=== PATIENT | female | born 1995 | race Caucasian/White ===

== ENCOUNTER 2019-11-14 15:47 | Outpatient (CLI) | payer OTHER ==
--- NOTE | 2019-11-14 16:11 | ULT ---
LEFT BREAST ULTRASOUND: 11/14/19 HISTORY: 24-year-old female with left breast lump, history of trauma. FINDINGS/IMPRESSION: Sonographic evaluation of the region of palpable concern at the 11 o'clock position of the left breas t 3 cm from the nipple demonstrates a well circumscribed slightly hyperechoic nonshadowing mass measu ring 3.2 x 2.8 x 1.2 cm with a small amount of fluid adjacent to it. This is most likely a hematoma. Recommend a follow-up ultrasound in three months.
== END 2019-11-14 15:48 | disposition home or self-care (01) ==
LOC: BICULT 15:47
PROVIDERS: ATTEND Advanced Practice Midwife
DX: N63.20 Unspecified lump in the left breast, unspecified quadrant (principal)

== ENCOUNTER 2019-12-18 05:30 | Inpatient (IN) | payer OTHER, MEDICAID ==
[2019-12-18 06:38] VITALS: BMI 48.0
[2019-12-18] MEDS: Lactated Ringer's 1,000 ML IV SCH ×3 (06:40→17:45)
[2019-12-18] MEDS ORDERED: Lidocaine 1% (PF) 30 ML VIAL SC PRN (07:35)
[2019-12-18] MEDS ORDERED: HYDROcodone/Acetaminophen 5/325 mg Tablet PO PRN ×2 (07:35)
[2019-12-18] MEDS ORDERED: Promethazine HCl 25 MG/ML VIAL IM PRN ×2 (07:35→16:46)
[2019-12-18] MEDS ORDERED: Ondansetron PF 4 MG/2 ML Vial IVP PRN ×2 (07:35→16:46)
[2019-12-18] MEDS ORDERED: Butorphanol Tartrate 1 MG/ML VIAL SLOW IVP PRN (07:35)
[2019-12-18] MEDS ORDERED: NS / Oxytocin 40 units/1000ml 1,000 ML IV PRN (07:35)
[2019-12-18] MEDS ORDERED: hydrALAZINE 20 MG/ML VIAL SLOW IVP PRN (07:35)
[2019-12-18] MEDS ORDERED: Ibuprofen 800 MG TAB PO PRN (07:35)
[2019-12-18] MEDS ORDERED: NS w/ Oxytocin 10 units 500 ML IV SCH (07:45)
[2019-12-18] MEDS ORDERED: Penicillin G Potassium 5 MILL.UNITS in Sodium Chloride 0.9% 100 ML IVPB SCH (07:45)
[2019-12-18 07:56] LABS: Hemoglobin 12.5 g/dL (12.0-16.0); Mean Corpuscular HGB CONC 31.7 g/dL (32.0-36.0); Mean Corpuscular Hemoglobin 24.8 pg (27.0-31.0); Mean Corpuscular Volume 78.3 fL (78.0-98.0); Mean Platelet Volume 9.6 fL (7.4-10.4); Platelet Count 179 thou/uL (130-400); RBC Distribution Width 13.5 % (11.5-14.5); Red Blood Cell (RBC) Count 5.05 mill/uL (4.20-5.40); White Blood Cell (WBC) Count 10.6 thou/uL (4.8-10.8)
[2019-12-18 08:36] LABS: HBSAg Index 0.23 S/CO (0-0.99); Hep B Surf Ag Non-Reactive S/CO (NonReactive); Syphilis Antibody Nonreactive (Nonreactive); Syphilis Antibody Index 0.04 S/CO (<1.00 Non-Reactive)
[2019-12-18] MEDS: Penicillin G 2.5 MILL.units 2.5 MILL.UNITS in Premix Bag 1 BAG IVPB SCH ×2 (12:14→16:14)
--- NOTE | 2019-12-18 15:51 | PDOC.LDHP ---
Labor and Delivery H&P Chief complaint: scheduled induction (Scheduled elective IOL) HPI: Patient arrives for elective IOL at term. +FM. Having stupid little contractions that are not doing anything. She is ready to get "this s*it on the road." Current gestational age (weeks): 39 Due date: 12/24/19 Dating criteria: last menstrual period Grav: 6 Para: 1 OB History Details: 2016 Past Medical History: Type 2 bi-polar anxiety disorder Current medications: none Previous surgical history: other (extractions of wisdom tooth) Allergies/Adverse Reactions: Allergies Allergy/AdvReac Type Severity Reaction Status Date / Time No Known Drug Allergies Allergy Verified 12/18/19 06:28 Social history: none - Physical Exam Vital signs reviewed and normal: yes Abnormal vital signs: 146/93 during a contractions General: breathing through contractions Lungs: nonlabored breathing Abdomen: gravid FHT: category 1 - Vaginal Exam cm dilated: 2 Effacement: 90% Station: -3 - OB Labs Blood type: O RH: negative Antibody Screen: negative HIV: negative RPR: negative HEPSAg: negative GBS: positive - Assessment L&D Assessment: elective induction at term - Plan Plan: admit to L&D, GBS antibiotic prophylaxis, informed consent obtained, anesthesia consult for pain management -: AROM IUPC and FSE placed at 1300
[2019-12-18] MEDS ORDERED: Fentanyl 4 mcg/Bup 0.1% Cadd 100 ML ONE (15:54)
[2019-12-18] MEDS ORDERED: diphenhydrAMINE 50 MG/ML VIAL IVP PRN (16:46)
[2019-12-18] MEDS ORDERED: Acetaminophen 325 MG TAB PO PRN (16:46)
[2019-12-18] MEDS ORDERED: EPHEDRINE 25 MG/5 ML SYRINGE SLOW IVP PRN (16:46)
[2019-12-18] MEDS ORDERED: Naloxone HCl 0.4 mg/ml Vial IVP PRN ×2 (16:46)
[2019-12-18] MEDS ORDERED: Lactated Ringer's 500 ML IV PRN (16:46)
[2019-12-18] MEDS ORDERED: Fentanyl 4 mcg/Bupivacaine 0.1% Cassette 100 ML EPIDURAL SCH (17:00)
[2019-12-18] MEDS ORDERED: Communication Order-Pharmacy FS SCH (17:00)
[2019-12-19] MEDS ORDERED: Fentanyl 4 mcg/Bup 0.1% Cadd 100 ML ONE (00:14)
[2019-12-19] MEDS: Penicillin G 2.5 MILL.units 2.5 MILL.UNITS in Premix Bag 1 BAG IVPB SCH ×3 (04:33→12:23)
[2019-12-19] MEDS ORDERED: Gentamicin Sulfate 400 MG in Sodium Chloride 0.9% 100 ML IVPB SCH (05:15)
[2019-12-19] MEDS: Lactated Ringer's 1,000 ML IV SCH ×4 (06:39→18:27)
--- NOTE | 2019-12-19 07:13 | PDOC.LDPN ---
Labor & Delivery Progress Note - Subjective Subjective: comfortable (with an epidural and sleeping) - Objective General: NAD Uterine fundus: non tender Dilation: 100 Effacement: 100% Station: 0 FHT: category 2 ( tachycardia, occasional deep decels) AROM: clear fluid - Assessment (1) Failure of descent in labor, delivered, current hospitalization Code(s): O62.2 - OTHER UTERINE INERTIA Current Visit: Yes Status: Acute (2) Obesity Code(s): E66.9 - OBESITY, UNSPECIFIED Current Visit: Yes Status: Acute Plan: other (proceed with primary c section for failure of decent. Dr. August notified and anethesia notified. )
[2019-12-19] MEDS ORDERED: Bicitra 30 ML UDCUP PO SCH (07:15)
[2019-12-19] MEDS ORDERED: CEFAZOLIN 2 GM in Premix Bag 1 BAG IVPB SCH (07:15)
[2019-12-19] MEDS ORDERED: Lidocaine 2% 10 ML INJ ONE (07:17)
[2019-12-19] MEDS ORDERED: MORPHINE 5 MG/10 ML PF VIAL ONE (07:21)
[2019-12-19] MEDS ORDERED: Oxytocin 10 UNITS/ML VIAL ONE ×2 (07:22→07:59)
[2019-12-19] MEDS ORDERED: Ondansetron PF 4 MG/2 ML Vial ONE (07:22)
[2019-12-19] MEDS ORDERED: Ketorolac Tromethamine 30 MG/ML VIAL ONE ×2 (07:22→10:06)
[2019-12-19] MEDS ORDERED: Dexamethasone 4 mg/ml Vial ONE (07:22)
[2019-12-19] MEDS ORDERED: Azithromycin 500 MG VIAL ONE (07:22)
[2019-12-19] MEDS ORDERED: PHENYLEPHRINE-NS 100 MCG/ML 10 ML SYRINGE ONE (07:34)
[2019-12-19] MEDS ORDERED: Fentanyl 100 MCG/2 ML VIAL ONE ×2 (07:51→08:33)
[2019-12-19 08:11] LABS: Actual Bicarbonate (HCO3a) 19.8 mEq/L (22-28); Base Excess (BEa) -14.1 mEq/L (-2.0 to +3.0)
[2019-12-19 08:14] LABS: Actual Bicarbonate (HCO3v) 18 mEq/L (22-28); Base Excess -13.5 mEq/L (-2.0 to +3.0)
[2019-12-19 08:15] LABS: pH (Cord, venous) 7.05 (7.32-7.43)
[2019-12-19] MEDS ORDERED: Sodium Chloride 0.9% 10 ML ONE (08:35)
[2019-12-19] MEDS ORDERED: Ondansetron PF 4 MG/2 ML Vial IVP PRN (09:04)
[2019-12-19] MEDS ORDERED: HYDROmorphone 2 MG/ML VIAL SLOW IVP PRN (09:04)
[2019-12-19] MEDS ORDERED: Promethazine HCl 25 MG/ML VIAL IM PRN (09:04)
[2019-12-19] MEDS ORDERED: Meperidine HCl/PF 25 MG/ML VIAL SLOW IVP PRN (09:04)
[2019-12-19] MEDS ORDERED: Promethazine HCl 25 MG SUPP PR PRN (09:04)
[2019-12-19] MEDS ORDERED: Ondansetron HCl/PF 4 MG/2 ML Vial IVP PRN (09:04)
[2019-12-19] MEDS ORDERED: diphenhydrAMINE 50 MG/ML VIAL IVP PRN (09:04)
[2019-12-19] MEDS ORDERED: Ketorolac Tromethamine 30 MG/ML VIAL IVP PRN (09:04)
[2019-12-19] MEDS ORDERED: Naloxone HCl 0.4 mg/ml Vial IVP PRN ×2 (09:04)
[2019-12-19] MEDS ORDERED: Naloxone HCl 0.4 mg/ml Vial IV PRN (09:04)
[2019-12-19] MEDS ORDERED: L&D-Morphine 4 MG/ML VIAL SLOW IVP PRN (09:04)
[2019-12-19] MEDS ORDERED: Communication Order-Pharmacy FS SCH (09:15)
--- NOTE | 2019-12-19 10:06 | PDOC.OPDEL ---
OB Operative/Delivery Note Delivery Dr/Surgeon: Mariangel Assist: Light Pre-Delivery Diagnosis: non-reassuring tracing, other (arrest of descent) Procedure/Post Delivery Dx: primary low transverse CS Weeks gestation: 39 Anesthesia: epidural - Findings A Sex: male - Additional Findings/Plan Placenta delivered: spontaneous findings: low transverse hysterotomy without extension, normal uterus, normal tubes, normal ovaries Estimated blood loss: 800cc Compilations/Other Findings: Gas 6.975, BE -14 Post delivery plan: routine recovery
[2019-12-19] MEDS ORDERED: NS / Oxytocin 40 units/1000ml 1,000 ML IV SCH (10:49)
[2019-12-19] MEDS ORDERED: Acetaminophen 325 MG TAB PO PRN (10:49)
[2019-12-19] MEDS ORDERED: hydrALAZINE 20 MG/ML VIAL SLOW IVP PRN (10:49)
[2019-12-19] MEDS ORDERED: HYDROcodone/Acetaminophen 5/325 mg Tablet PO PRN (10:49)
[2019-12-19] MEDS ORDERED: Lanolin Ointment 7 GM TUBE TOP PRN (10:49)
[2019-12-19] MEDS ORDERED: Prenatal Vitamin 1 TAB PO SCH (11:15)
[2019-12-19] MEDS: Ketorolac Tromethamine 30 MG/ML VIAL IVP SCH (12:21)
[2019-12-19] MEDS: Ampicillin 2 GM in Sodium Chloride 0.9% 100 ML IVPB SCH ×3 (13:06→23:41)
[2019-12-19] MEDS: Clindamycin/D5W 900 MG in Premix Bag 1 BAG IVPB SCH ×2 (14:25→21:57)
[2019-12-19] MEDS: HYDROcodone/Acetaminophen 5/325 mg Tablet PO PRN (21:58)
[2019-12-19] MEDS: Simethicone Chewable 80 MG TAB PO PRN (21:58)
[2019-12-20] MEDS: Lactated Ringer's 1,000 ML IV SCH ×3 (05:36→17:32)
[2019-12-20 05:52] LABS: Hemoglobin 10.4 g/dL (12.0-16.0); Mean Corpuscular Volume 79.4 fL (78.0-98.0); Mean Platelet Volume 7.9 fL (7.4-10.4); Platelet Count 166 thou/uL (130-400); RBC Distribution Width 13.6 % (11.5-14.5); Red Blood Cell (RBC) Count 3.85 mill/uL (4.20-5.40); White Blood Cell (WBC) Count 13.7 thou/uL (4.8-10.8)
[2019-12-20] MEDS: HYDROcodone/Acetaminophen 5/325 mg Tablet PO PRN ×2 (06:13→10:50)
[2019-12-20] MEDS: Clindamycin/D5W 900 MG in Premix Bag 1 BAG IVPB SCH ×3 (06:19→15:37)
[2019-12-20] MEDS: Ampicillin 2 GM in Sodium Chloride 0.9% 100 ML IVPB SCH ×2 (07:39→11:53)
[2019-12-20] MEDS: Prenatal Vitamin 1 TAB PO SCH (07:41)
[2019-12-20] MEDS: Ketorolac Tromethamine 30 MG/ML VIAL IVP SCH (07:48)
[2019-12-20] MEDS ORDERED: Adacel (T-DAP) 0.5 ML SYRINGE IM ONE (09:00)
[2019-12-20] MEDS: Ibuprofen 800 MG TAB PO SCH ×2 (14:10→21:45)
--- NOTE | 2019-12-20 14:15 | PDOC.PP ---
Post Progress Note Post Day #: 1 Subjective: doing well, emotionally struggling because she is blaming herself for NICU admission, light lochia, minimal pain/discomfort PO intake tolerated: yes Flatus: yes Ambulation: yes Vital Signs (12 hours) Temp Pulse Resp BP Pulse Ox 12/20/19 12:03 97.8 F 98 20 131/92 H 12/20/19 07:54 98.3 F 101 H 20 120/87 99 12/20/19 05:00 97.8 F 98 18 129/73 Weight Weight 280 lb - Physical Examination General: NAD Respiratory: non-labored breathing Skin: no rash Neurological: no gross focal deficits Psychiatric: A&Ox3 Result Diagrams: 12/20/19 05:42 Additional Labs: Post Labs Blood Type O NEGATIVE 12/18/19 08:28 Hep Bs Antigen Non-Reactive S/CO (NonReactive) 12/18/19 06:40 (1) deliv NOS-unsp Code(s): ULQ9085 - Status: Acute (2) Obesity Code(s): E66.9 - OBESITY, UNSPECIFIED Status: Acute Qualifiers: Obesity type: unspecified obesity type Obesity classification: adult class 3 (BMI >= 40) Serious obesity comorbidity presence: unspecified whether serious comorbidity present Body mass index: BMI 45.0-49.9 Qualified Code(s) : E66.01 - Morbid (severe) obesity due to excess calories; Z68.42 - Body mass index (BMI) 45.0-49.9, adult - Assessment/Plan POD1 Doing well, reviewed indication and level of urgency reported for CS and reassurance provided, pt reports she is emotionally relieved after our short discussion, pain controlled.
[2019-12-20] MEDS: Docusate Calcium (SURFAK) 240 MG CAP PO SCH (21:45)
[2019-12-20] MEDS: Simethicone Chewable 80 MG TAB PO PRN (21:45)
[2019-12-21] MEDS: Ibuprofen 800 MG TAB PO SCH ×3 (05:53→21:18)
[2019-12-21] MEDS: Lactated Ringer's 1,000 ML IV SCH ×4 (05:54→23:56)
--- NOTE | 2019-12-21 07:22 | PDOC.PP ---
Post Progress Note Post Day #: 2 Subjective: Feeling better. Baby improving. Vital Signs (12 hours) Temp Pulse Resp BP Pulse Ox 12/21/19 03:43 98.1 F 85 18 128/70 12/20/19 20:00 98.6 F 109 H 18 138/78 99 Weight Weight 280 lb Result Diagrams: 12/20/19 05:42 Additional Labs: Post Labs Blood Type O NEGATIVE 12/18/19 08:28 Hep Bs Antigen Non-Reactive S/CO (NonReactive) 12/18/19 06:40 - Assessment/Plan Post op day 2 from primary c/s. Progressing well. Anticipate discharge in AM.
[2019-12-21] MEDS: Ketorolac Tromethamine 30 MG/ML VIAL IVP SCH (07:35)
[2019-12-21] MEDS: Prenatal Vitamin 1 TAB PO SCH (08:42)
[2019-12-21] MEDS: Docusate Calcium (SURFAK) 240 MG CAP PO SCH ×2 (08:42→21:18)
[2019-12-21] MEDS: HYDROcodone/Acetaminophen 5/325 mg Tablet PO PRN (12:31)
[2019-12-21] MEDS: Simethicone Chewable 80 MG TAB PO PRN (21:19)
[2019-12-22] MEDS: Ibuprofen 800 MG TAB PO SCH ×2 (05:28→14:57)
[2019-12-22] MEDS: Docusate Calcium (SURFAK) 240 MG CAP PO SCH (07:37)
[2019-12-22] MEDS: Prenatal Vitamin 1 TAB PO SCH (07:37)
[2019-12-22 08:32] VITALS: BP 134/79; TEMP 98.1
[2019-12-22] MEDS: Lactated Ringer's 1,000 ML IV SCH (09:48)
[2019-12-22] MEDS: Ketorolac Tromethamine 30 MG/ML VIAL IVP SCH (09:48)
--- NOTE | 2019-12-22 18:48 | OP ---
DATE OF PROCEDURE: 12/19/2019 PREOPERATIVE DIAGNOSES: 1. Intrauterine at 39 weeks and 1 day. 2. Arrest of descent. 3. Non-reassuring heart tones. 4. Chorioamnionitis. POSTOPERATIVE DIAGNOSES: 1. Intrauterine at 39 weeks and 1 day. 2. Arrest of descent. 3. Non-reassuring heart tones. 4. Chorioamnionitis. 5. Cephalopelvic disproportion. PROCEDURE PERFORMED: Primary low-transverse section via Pfannenstiel skin incision. ANESTHESIA: Epidural. MASTER BREWER SURGEON: Marlene Lucas CNM ESTIMATED BLOOD LOSS: 800 mL. COMPLICATIONS: None. DRAINS: Nixon catheter. PATHOLOGY: Placenta. FINDINGS: Male , cephalic presentation OP. Weight and Apgars are pending. Arterial pH 6.975, arterial pCO2 87, arterial base excess -14. Hysterotomy without extension. Normal uterus, ovaries, and tubes bilaterally. OPERATIVE INDICATIONS: A 24-year-old, G6, P1, presented at 39 weeks for scheduled elective induction secondary to suspected macrosomia. The patient underwent Pitocin induction with AROM and received GBS prophylaxis with penicillin. She got an epidural and progressed to 10 cm at approximately 0530 hours. She then began pushing, and at that time also, the patient had spiked a temperature and she was started on gentamicin in addition to her penicillin. Up until that point, baby had had minimal variability with some mild variable decelerations. FSE and IUPC were tracing, overall a category 2 strip. The heart rate baseline gradually increased after the maternal temperature was noted to a baseline of 170. The baby started to have deeper variables intermittently with mild variables in between. The patient pushed a few times with the assistance of the OB hospitalist, Dr. Gan. She then refused to push stating that she needed to rest in order to gather up her strength. Dr. Gan told her secondary to the category 2 tracing and high station, the baby was also in OP position at that time that she did need to proceed with pushing or do a . At that time, the patient refused to do a and wanted to try again in 1 hour as long as the baby was in an imminent danger. This was at approximately 0600 hours. At 0700 hours, Marlene Lucas, her primary OB, arrived to the room. The baby was still at 0 station and OP position, and the baby was having deep variables intermittently, occasional late decelerations and tachycardia with a baseline of 170. Secondary to no progression after the patient's pushing with Dr. Gan, no descent with laboring down, and non-reassuring heart tones, the decision was made to proceed with a primary , and the patient consented at that time. DESCRIPTION OF PROCEDURE: The patient was taken to the operating room where epidural anesthesia was found to be adequate. The patient was prepped and draped in a sterile fashion in the dorsal supine position with a leftward tilt. After ensuring adequacy of anesthesia, a Pfannenstiel skin incision was made and carried down to the underlying subcutaneous tissue with a knife. The fascia was nicked in the midline with a knife and carried laterally with the Wang scissors. The superior aspect of the fascia was tented with 2 Sanjana's and dissected off the rectus with the Wang scissors. The inferior aspect of the fascia was tented with 2 Sanjana's and dissected off the rectus down to the pubic symphysis with the Wang. The rectus was bluntly divided in the midline. The peritoneum was bluntly entered into and manually retracted. The Morgan O retractor was placed, and the bladder flap was created with the Metzenbaum. The lower uterine segment was incised in a transverse fashion and extended with a Romero maneuver. Meconium was noted. The 's head was brought to the hysterotomy and delivered atraumatically. There was a lot of caput on the baby's head. The baby was not vigorous. Therefore, the cord was quickly clamped and infant handed to awaiting michele team. Cord gases obtained as well as cord blood. Placenta was allowed to spontaneously deliver. The uterus was exteriorized, cleared of all clots and debris, and the uterus was placed back into the abdomen. The hysterotomy was repaired with #1 Monocryl in a running locking fashion. There was oozing from the hysterotomy at multiple sites and therefore a second imbricating horizontal layer of #1 Monocryl was placed over. There was still slight oozing from one side of the hysterotomy on the right and this was cauterized. Pressure was held over the hysterotomy. FloSeal was also called for. Irrigation was performed of the pelvis and pericolic gutters. The remainder of the surgical site was noted to be hemostatic. FloSeal was placed over the hysterotomy, and pressure was held for 2 minutes. Hemostasis was then noted to be excellent. The Morgan O retractor was removed. The rectus muscles were examined and cauterized the perforating vessel that was oozing. The remainder of the rectus was hemostatic. The fascia was reapproximated with a 0 PDS x2 sutures with excellent reapproximation. The subcutaneous tissue was irrigated and cauterized of any bleeders and reapproximated with a 2-0 plain gut in 2 layers in a running fashion. The skin was closed with 4-0 Monocryl in a subcuticular fashion. Dermabond was applied as well as a pressure dressing. The patient tolerated the procedure well. Sponge and needle counts were correct x2. The patient was taken to recovery room in stable condition. The patient received Ancef 2 g prior to the procedure and azithromycin 500 mg IV. The patient will be continued on ampicillin, gentamycin, and clindamycin for 48 hours secondary to chorioamnionitis. Job ID: [id number]
== END 2019-12-22 18:26 | disposition home or self-care (01) | DRG 786 ==
LOC: L&D 05:33 → 3SW 12-19 11:48
PROVIDERS: ADMIT Student in an Organized Health Care Education/Training Program; ATTEND Student in an Organized Health Care Education/Training Program
PROC: 10D00Z1 Extraction of Products of Conception, Low, Open Approach (ICD-10-PCS; principal; 2019-12-19)
DX: O76 Abnormality in fetal heart rate and rhythm complicating labor and delivery (principal); O41.1230 Chorioamnionitis, third trimester, not applicable or unspecified; F31.81 Bipolar II disorder; O99.344 Other mental disorders complicating childbirth; O32.4XX0 Maternal care for high head at term, not applicable or unspecified; F41.9 Anxiety disorder, unspecified; O99.824 Streptococcus B carrier state complicating childbirth; O99.214 Obesity complicating childbirth; E66.01 Morbid (severe) obesity due to excess calories; O33.9 Maternal care for disproportion, unspecified; Z3A.39 39 weeks gestation of pregnancy; Z37.0 Single live birth
CPT/HCPCS: 36415; 51702; 82805; 85027; 86780; 86850; 86900; 86901; 87340; 88307; J0290; J0456; J0690; J1100; J1580; J1885; J2001; J2274; J2405; J2540; J2590; J3010; J3490